=== PATIENT | male | born 1970 | race Caucasian/White ===

== ENCOUNTER 2022-11-06 21:41 | Emergency (ER) | payer MEDICARE ==
[~2022-11-06] VITALS: Ht 180.3 cm; Wt 61.4 kg
[2022-11-07] MEDS ORDERED: PREDNISONE20 MG PO (07:15)
[2022-11-07] MEDS ORDERED: VENTOLIN HFA18 GM INH (07:15)
[2022-11-07] MEDS ORDERED: AMOX TR-K CLV1 EAC1 PO (07:15)
== END 2022-11-07 12:11 | disposition home or self-care (01) ==
LOC: ED 21:41
DX: J44.1 Chronic obstructive pulmonary disease with (acute) exacerbation (principal); Z20.822 Contact with and (suspected) exposure to COVID-19
CPT/HCPCS: 36415; 71045; 80053; 81003; 85025; 87502; 94640; 96374; 99285-25; J2930; J7512; U0003